=== PATIENT | female | born 1985 | race Caucasian/White ===

== ENCOUNTER → 2016-08-26 | Outpatient (CLI) | payer MEDICAID ==
[~2016-08-26] MED LIST: GABAPENTIN600 MG PO; LORAZEPAM1 MG/TABLE PO; MULTI VITAMINS1 TAB PO; NORCO 325 MG-51 TAB PO; [UNRECOGNIZED DRUG - OTHER] PO
[2016-08-26 17:01] LABS: LYMPH % 14.4 % (10-50.0)
[2016-08-26 17:22] LABS: HEMOGLOBIN 11.2 g/dL (12.2-16.2)
[2016-08-26 17:30] LABS: ABO BLOOD TYPE A; RH BLOOD TYPE POSITIVE
[2016-08-26 18:16] LABS: AMPHETAMINES/METAMPHETAMINES NEGATIVE ng/mL (<1000)
[2016-08-28 05:36] LABS: Rapid Plasma Reagin, Quant Non Reactive (NonRea<1:1)
[2016-08-28 08:43] LABS: HBsAg Screen Negative (Negative)
[2016-08-28 09:38] LABS: HIV Screen 4th Generation wRfx Non Reactive (Non Reactive)
[2016-08-29 08:45] LABS: Rubella Antibodies, IgG 1.07 index (Immune >0.99)
== END ==
LOC: LAB 16:17
PROVIDERS: Obstetrics & Gynecology
DX: Z34.80 Encounter for supervision of other normal pregnancy, unspecified trimester (principal)
CPT/HCPCS: G0432

== ENCOUNTER → 2016-10-01 | Outpatient (CLI) | payer MEDICAID ==
[2016-10-01 08:54] LABS: FASTING URINE GLUCOSE NEGATIVE
[2016-10-01 11:24] LABS: 1 HR URINE GLUCOSE TRACE mg/ml; 2 HR URINE GLUCOSE TRACE mg/ml
[2016-10-01 12:23] LABS: 3 HR URINE GLUCOSE 1+ mg/ml
== END ==
LOC: LAB 08:36
PROVIDERS: Obstetrics & Gynecology
DX: Z13.1 Encounter for screening for diabetes mellitus (principal)

== ENCOUNTER → 2016-11-21 | Outpatient (CLI) | payer MEDICAID | LOC: LAB 12:17 | DX: Z36 Encounter for antenatal screening of mother (principal) ==